=== PATIENT | male | born 1990 | race Caucasian/White ===

== ENCOUNTER 2021-08-27 22:34 | Emergency (ER) | payer SELFPAY ==
[2021-08-28] MEDS ORDERED: IBUPROFEN800 MG PO (00:55)
[2021-08-28] MEDS ORDERED: AMOX TR-K CLV1 EAC4 PO (00:55)
== END 2021-08-28 01:05 | disposition home or self-care (01) ==
LOC: ER1 22:34
DX: S61.251A Open bite of left index finger without damage to nail, initial encounter (principal); S16.1XXA Strain of muscle, fascia and tendon at neck level, initial encounter; S50.01XA Contusion of right elbow, initial encounter; S40.011A Contusion of right shoulder, initial encounter; S00.81XA Abrasion of other part of head, initial encounter; Y04.1XXA Assault by human bite, initial encounter; Y92.89 Other specified places as the place of occurrence of the external cause; Y99.0 Civilian activity done for income or pay
CPT/HCPCS: 72040; 73030; 73080; 99283